=== PATIENT | male | born 1945 | race Caucasian/White ===

== ENCOUNTER 2023-08-24 17:11 | Emergency (ER) | payer MEDICARE, OTHER ==
[2023-08-24 18:23] LABS: BASOPHILS # (AUTO) 0.1 10^3/uL (0.0-0.1); BASOPHILS % (AUTO) 0.8 %; EOSINOPHILS # (AUTO) 0.6 10^3/uL (0.0-0.7); EOSINOPHILS % (AUTO) 9.4 %; HCT - HEMATOCRIT 42.1 % (42.0-52.0); HGB - HEMOGLOBIN 13.6 g/dL (14.0-18.0); LYMPHOCYTES # (AUTO) 0.7 10^3/uL (1.5-3.5); MEAN CORPUSCULAR HEMOGLOBIN 29.8 pg (27.0-31.0); MEAN CORPUSCULAR HGB CONC 32.3 g/dL (32.0-36.0); MEAN CORPUSCULAR VOLUME 92.1 fL (80.0-94.0); MEAN PLATELET VOLUME 10.4 fL (7.4-11.4); MONOCYTES # (AUTO) 1.2 10^3/uL (0.0-1.0); MONOCYTES % (AUTO) 17.7 %; NEUTROPHILS % (AUTO) 60.6 %; PLT - PLATELET COUNT 192 10^3/uL (130-450); RED BLOOD COUNT 4.57 10^6/uL (4.70-6.10); RED CELL DISTRIBUTION WIDTH 14.6 % (12.0-15.0); WHITE BLOOD COUNT 6.6 x10^3/uL (4.8-10.8)
[2023-08-24 18:41] LABS: BILIRUBIN,URINE NEGATIVE (NEGATIVE); GLUCOSE, URINE (UA) NEGATIVE (NEGATIVE); KETONES,URINE (UA) NEGATIVE (NEGATIVE); LEUKOCYTE ESTERASE, URINE NEGATIVE (NEGATIVE); NITRITE,URINE NEGATIVE (NEGATIVE); OCCULT BLOOD,URINE NEGATIVE (NEGATIVE); PROTEIN,URINE NEGATIVE (NEGATIVE); UROBILINOGEN,URINE 0.2 (NORMAL) E.U./dL (NORMAL)
[2023-08-24 18:42] LABS: CLARITY,URINE CLEAR (CLEAR)
[2023-08-24 18:46] LABS: ALBUMIN 4.4 g/dL (3.2-5.5); ALBUMIN/GLOBULIN RATIO 1.7 (1.0-2.2); BILIRUBIN,TOTAL 0.7 mg/dL (0.2-1.0); CALCIUM 9.7 mg/dL (8.5-10.3); CREATININE 0.9 mg/dL (0.6-1.3); POTASSIUM 4.1 mmol/L (3.5-4.5)
[2023-08-24] MEDS ORDERED: iohexoL-300 100 ML VIAL ONE (22:23)
--- NOTE | 2023-08-24 23:16 | ED Physician Documentation ---
History of Present Illness - Stated complaint Stated Complaint: BODY PX - Chief complaint Chief Complaint: Abd Pain - History obtained from History obtained from: Patient - History of Present Illness Timing: Today Pain level max: 0 Pain level now: 0 - Additonal information Additional information: Patient is an 78-year-old male, currently being treated for neuroendocrine tumor at [facility]. He is on Lutathera. On outpatient lab draws noted to have mild elevation of his liver function test. Normal bilirubin. The nurse told him to come to the hospital to rule out "biliary obstruction" with a CT scan. The patient has no jaundice. No new significant abdominal pain. He states he has had nausea for several months but does not want any medication for this. No vomiting. No fevers. No chills. Otherwise asymptomatic. Review of Systems Constitutional: denies: Fever, Chills Respiratory: denies: Cough GI: denies: Vomiting, Diarrhea Skin: denies: Rash Musculoskeletal: denies: Neck pain, Back pain Neurologic: denies: Headache PD PAST MEDICAL HISTORY - Past Medical History Past Medical History: Yes Cardiovascular: Hypertension Other Past Medical History: neuroendendocrine cancer - Past Surgical History Past Surgical History: Yes General: Bowel surgery - Allergies Allergies/Adverse Reactions: Allergies Allergy/AdvReac Type Severity Reaction Status Date / Time Penicillins Allergy Rash Verified 08/24/23 17:45 - Social History Does the pt smoke?: No Smoking Status: Never smoker Does the pt drink ETOH?: Yes PD ED PE NORMAL - Vitals Vital signs reviewed: Yes - General General: Alert and oriented X 3, No acute distress - HEENT HEENT: Moist mucous membranes - Neck Neck: Supple, no meningeal sign - Cardiac Cardiac: RRR, Strong equal pulses - Respiratory Respiratory: No respiratory distress, Clear bilaterally - Abdomen Abdomen: Soft, Non tender, Non distended - Derm Derm: Warm and dry - Neuro Neuro: Alert and oriented X 3 - Psych Psych: Normal mood, Normal affect Results - Vitals Vitals: Vital Signs - 24 hr 08/24/23 08/24/23 08/24/23 17:39 17:45 19:43 Temperature 36.7 C 36.7 C 36.1 C L Heart Rate 51 L 51 L 43 L Respiratory 18 18 16 Rate Blood Pressure 178/67 H 178/67 H 135/60 H O2 Saturation 100 100 100 08/24/23 08/24/23 21:00 23:00 Temperature Heart Rate 40 L 41 L Respiratory 16 16 Rate Blood Pressure 166/78 H 146/55 H O2 Saturation 100 99 Oxygen O2 Source Room air - Labs Labs: Laboratory Tests 08/24/23 08/24/23 08/24/23 17:21 18:02 18:02 WBC 6.6 RBC 4.57 L Hgb 13.6 L Hct 42.1 MCV 92.1 MCH 29.8 MCHC 32.3 RDW 14.6 Plt Count 192 MPV 10.4 Neut # (Auto) 4.0 Lymph # (Auto) 0.7 L [place] # (Auto) 1.2 H Eos # (Auto) 0.6 Baso # (Auto) 0.1 Absolute Nucleated RBC 0.00 Nucleated RBC % 0.0 Sodium 140 Potassium 4.1 Chloride 104 Carbon Dioxide 29 Anion Gap 7.0 BUN 21 H Creatinine 0.9 Estimated GFR (MDRD) 81 L Glucose 95 Calcium 9.7 Total Bilirubin 0.7 AST 93 H ALT 202 H Alkaline Phosphatase 545 H Total Protein 7.0 Albumin 4.4 Globulin 2.6 Albumin/Globulin Ratio 1.7 Lipase 50 Urine Color YELLOW Urine Clarity CLEAR Urine pH 6.0 Ur Specific [place] <=1.005 Urine Protein NEGATIVE Urine Glucose (UA) NEGATIVE Urine Ketones NEGATIVE Urine Occult Blood NEGATIVE Urine Nitrite NEGATIVE Urine Bilirubin NEGATIVE Urine Urobilinogen 0.2 (NORMAL) Ur Leukocyte Esterase NEGATIVE Ur Microscopic Review NOT INDICATED Urine Culture Comments NOT INDICATED - Rads (name of study) CT abdomen pelvis Relevant Findings:: Final report received, See rad report PD Medical Decision Making - ED course Complexity details: reviewed results, re-evaluated patient, considered differential, d/w patient ED course: Patient is well-appearing, nontoxic. Afebrile. Normal bilirubin, mild elevation of his liver function test, likely due to the Lutathera. He also drinks red wine and has a mild fatty liver. 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 No evidence of biliary obstruction on CT scan. Patient is asymptomatic here. Will have him follow-up with his oncologist for further care. Patient counseled regarding signs and symptoms for which I believe and urgent re-evaluation would be necessary. Patient with good understanding of and agreement to plan and is comfortable going home at this time This document was made in part using voice recognition software. While efforts are made to proofread this document, sound alike and grammatical errors may occur. Please note that initially the patient was going to leave before the final CT scan was read as he had been here for several hours. The CT reading resulted just prior to the patient leaving the emergency department so I shared the results with him. Departure - Departure Disposition: 01 Home, Self Care Clinical Impression: Elevated liver function tests Condition: Good Instructions: Liver Panel Follow-Up: Jacinto Lee MD [Primary Care Provider] - Comments: Your liver function tests are elevated tonight, your total bilirubin is normal at 0.7. Your AST is 93/ALT is 202/alkaline phosphatase is 545. These are usually due to the Lutathera that you are taking. We did discuss your CT scan and I did not see any significant abnormalities, however the final scan has not been read by the radiologist and you have indicated that you are comfortable going home at this time. I will call you if there are any further findings that need urgent follow-up. Please follow-up with your oncologist on Sunday. Please return if you worsen including vomiting, fevers or other new or worrisome symptoms. Forms: PCP List Discharge Date/Time: 08/25/23 00:04
[2023-08-24 23:17] VITALS: BP 146/55; O2SAT 99
[2023-08-24] MEDS: iohexoL-300 100 ML VIAL IVP ONE (23:18)
--- NOTE | 2023-08-24 23:52 | CT Report ---
PROCEDURE: Abdomen/Pelvis W INDICATIONS: elevated LFT s/p lutathera,, neuroendo tumor CONTRAST: 100 ml omni 300 TECHNIQUE: After the administration of intravenous contrast, a CT scan of the abdomen and pelvis was performed. Images were recorded and evaluated at appropriate window settings. Reformats: coronal and sagittal. F or radiation dose reduction, the following was used: automated exposure control, adjustment of mA and /or kV according to patient size. COMPARISON: No prior studies available for review. FINDINGS: Image quality: Diagnostic. Lower chest: Mild bibasilar atelectasis. Small hiatal hernia. Heart size is normal. Liver: Hepatic steatosis. There is a 1.6 cm hepatic hypodensity with somewhat peripheral and possibly nodular enhancement identified near the caudate lobe (31/series 2). This may represent a hemangioma. Otherwise, no suspicious hepatic lesions identified. Gallbladder and biliary tree: No radiopaque stones or wall thickening. No biliary dilation. Spleen: No splenomegaly. Pancreas: No pancreatic ductal dilation. No peripancreatic inflammation. Adrenals: No adrenal nodule. Kidneys and ureters: No hydronephrosis. No renal cystic lesion which requires follow up. No solid mas s. Stomach, bowel and peritoneum: No bowel distension. No pathologic free fluid. Diverticulosis without evidence of diverticulitis. Lymph nodes: No central or retroperitoneal adenopathy. Vessels: No infrarenal aortic aneurysm. Atherosclerotic calcifications are noted. PELVIS Reproductive organs: The prostate gland is not visualized. Multiple surgical clips and postsurgical c hanges noted in the lower pelvis. Findings are likely related to prostatectomy. There are surgical ch anges of the ventral lower abdominal and pelvic spence. Bladder: No abnormal wall thickening, accounting for underdistention. Pelvic lymph nodes: No pelvic adenopathy by size criteria. Bones: Moderate multilevel spondylosis of the lumbar spine. No acute compression fractures. Heterogen eous, sclerotic appearance of the L2, L3-L4, and superior L5 vertebral bodies. These may represent de generative changes. No acute compression fractures. Other: No significant ventral or inguinal hernia. IMPRESSION: 1. Hepatic steatosis. Findings may explain patient's history of abnormal liver function tests. 2. There is a 1.6 cm hepatic hypodensity near the caudate lobe with findings suggestive of a hemangio ma. Consider outpatient follow-up CT/MRI of the abdomen using liver mass protocol for further charact erization. 3. Postsurgical changes of prostatectomy. Heterogeneous, sclerotic appearance of the L2-L4 vertebral bodies which may be related to moderate-severe spondylitic changes. However, osseous metastases not e xcluded given patient history. Recommend correlation with any prior cross-sectional imaging to docume nt stability. Otherwise, outpatient nuclear medicine bone scan can be considered for further evaluati on. 4. Colonic diverticulosis without acute diverticulitis. 5. Other chronic findings as above. Reviewed by: Adria Phillips MD on 08/24/2023 11:51 PM PST Approved by: Adria Phillips MD on 08/24/2023 11:51 PM PST Station ID: [id number]
== END 2023-08-25 00:04 | disposition home or self-care (01) ==
LOC: ED 17:11
DX: R79.89 Other specified abnormal findings of blood chemistry (principal); K76.0 Fatty (change of) liver, not elsewhere classified; C7B.8 Other secondary neuroendocrine tumors; C78.7 Secondary malignant neoplasm of liver and intrahepatic bile duct; Z79.899 Other long term (current) drug therapy
CPT/HCPCS: 36415; 74177; 80053; 81003; 83690; 85025; 99283; 99284; Q9967; 81001; 87086